=== PATIENT | female | born 1955 | race Caucasian/White ===

== ENCOUNTER → 2016-11-05 | Outpatient (CLI) | payer OTHER ==
[2016-11-05 15:59] LABS: Basophils # (A) 0.1 k/uL (0-0.2); Basophils % (A) 1 %; CH 31.5; CHCM 33.1; Eosinophils # (A) 0.3 k/uL (0-0.7); Eosinophils % (A) 4 %; HCT 38.7 % (34.0-46.0); HDW 2.33; HGB 12.7 gm/dL (11.4-16.0); Luc # (Auto) 0.25; Luc % (Auto) 4; Lymphocytes # (A) 1.4 k/uL (1.0-4.8); Lymphocytes % (A) 22 %; MCH 31.4 pg (25.0-35.0); MCHC 32.8 g/dL (31.0-37.0); MCV 95.7 fL (80.0-100.0); Mean Platelet Volume 7.6; Monocytes # (A) 0.6 k/uL (0-1.0); Monocytes % (A) 9 %; Neutrophils # (A) 3.8 k/uL (1.3-7.7); Neutrophils % (A) 60 %; RBC 4.04 m/uL (3.80-5.40); RDW 14.8 % (11.5-15.5); WBC 6.4 k/uL (3.8-10.6); WBC (Perox) 6.64
[2016-11-05 16:02] LABS: Appearance,Urine Clear (Clear); Bilirubin,Urine Negative (Negative); Glucose,Urine (UA) Negative (Negative); Ketones,Urine Negative (Negative); Leukocyte Esterase,Urine Negative (Negative); Nitrite,Urine Negative (Negative); PH, Urine 5.5 (5.0-8.0); Protein,Urine Negative (Negative); UA Billing (MACRO vs. MICRO) CHEM; Urobilinogen,Urine <2.0 mg/dL (<2.0)
[2016-11-05 16:09] LABS: INR 1.1 (<1.1); Partial Thromboplastin Time 24.5 sec (22.0-30.0); Prothrombin Time 10.9 sec (9.0-12.0)
[2016-11-05 16:21] LABS: ALT 36 U/L (9-52); AST 17 U/L (14-36); Alkaline Phosphatase 82 U/L (38-126); Anion Gap 11 mmol/L; Blood Urea Nitrogen 27 mg/dL (7-17); Calcium 9.9 mg/dL (8.4-10.2); Carbon Dioxide 24 mmol/L (22-30); Chloride 103 mmol/L (98-107); Glucose 95 mg/dL (74-99); Non-African American GFR(MDRD) 57 (>60 ml/min/1.73 sqM); Potassium 4.2 mmol/L (3.5-5.1); Sodium 138 mmol/L (137-145); Total Bilirubin 0.5 mg/dL (0.2-1.3); Total Protein 6.8 g/dL (6.3-8.2)
== END | disposition home or self-care (01) ==
LOC: LABPAT 15:20
PROVIDERS: ATTEND Orthopaedic Surgery
DX: Z01.818 Encounter for other preprocedural examination (principal)
CPT/HCPCS: 36415; 80053; 81003; 85025; 85610; 85730; 87070

== ENCOUNTER 2016-11-17 08:08 | Inpatient (IN) | payer OTHER ==
--- NOTE | 2016-11-10 09:54 | CONS ---
DATE OF CONSULTATION: Mrs. Betancourt is a 60-year-old female. She is scheduled for total right knee arthroplasty by Dr. Dayo Moses on November 17 at [facility]. Patient was seen in consultation. The patient does have history of hypertension and hyperlipidemia. There is also a history of an upper GI bleed back last April from a duodenal ulcer and history in the remote past of pseudotumor cerebri for which she had a previous lumbar peritoneal shunt placed. She does have underlying obesity. Her home medications include: 1. Hydrochlorothiazide 50 mg daily. 2. Protonix 40mg twice a day. 3. Lisinopril 5 mg daily. 4. Pravastatin 80 mg. 5. Restasis eye drops 0.05% emulsion in both eyes twice a day. ALLERGIES: No known allergies. REVIEW OF SYSTEMS: Negative for any unusual headache, visual disturbances, nausea, vomiting. No urinary or bowel symptoms. No hematochezia. No unusual leg edema. Most of her symptoms related to the pain in the right knee and difficulty walking Previous surgical history includes a hysterectomy in the past, optic nerve decompression and a lumbar peritoneal shunt for pseudotumor cerebri. Family history is positive for coronary artery disease with both parents. There is also a history of diabetes and lymphoma in the father. SOCIAL HISTORY: She is a former smoker many years ago. No history of any excessive alcohol intake. She does live locally in the area and has employment driving a van. On physical examination, she is alert and oriented, in no acute distress. Her blood pressure is 144/80. She does weigh 223 pounds with a BMI of 40.9, pulse was 80 and regular. HEENT: Unremarkable. No carotid bruits, adenopathy or thyromegaly. Lungs were clear. Heart tones are regular without murmurs or rubs. Breasts and pelvic exam deferred. ABDOMEN: Obese, but soft and nontender without organomegaly or masses. Extremities revealed some trace pedal edema and degenerative changes about the right knee. Neurologically, she is intact. Cranial nerves intact. No focal neurological weakness. The patient did have laboratory values done, which revealed a blood sugar of 95, sodium 138, potassium 4.2. Her CO2 content was 24. BUN elevated at 27 with creatinine 1.0, giving her GFR of 57. Liver function tests were unremarkable. Albumin 4.2. INR is 1.1. Her white count of 6.4, with hemoglobin 12.7 and a platelet count 249. PTT was 24.5. Urinalysis revealed negative leukocyte esterase. Nasal swab for MRSA is in progress at this dictation. Overall impression at this point: Patient was severe right knee derangement for surgery scheduled on the 17 of November. She does have a history of hypertension, underlying obesity, hyperlipidemia. Other past medical history with a previous history of a gastric ulcer last year likely NSAID induced at that time and remote history of pseudotumor cerebri for which she had a shunt placed. But at this point, cardiovascular status appears stable. I see no definite contraindication to planned surgery. She is to hold her hydrochlorothiazide the morning of surgery, although she usually takes it the night before. She can take a dose of Protonix and lisinopril with a small sip of water in the morning of surgery. Please call if any questions or concerns. ANALI
[2016-11-11 08:26] VITALS: BMI 40.6
[~2016-11-17 08:08] MED LIST: ACETAMINOPHEN TAB 500 MG TAB PO ONE; DEXAMETHASONE SOD PHOSPHATE 10 MG/ML 1 ML VIAL IV ONE; HYDROmorphone 1 MG/ML 1 ML SYRINGE IVP PRN; LIDOCAINE 1% 20 ML VIAL (10MG/ML) FOR IV START INTRADERMA PRN; MELOXICAM 7.5 MG TAB PO ONE; MIDAZOLAM 2 MG/2 ML VIAL IV PRN; ONDANSETRON 4 MG/2 ML VIAL IVP ONE; ROPIVACAINE 246.25 MG, EPINEPHrine 0.5 MG, KETOROLAC 30 MG, cloNIDine HCL/PF 80 MCG, WA... MISCELLANE ONE; SCOPOLAMINE 1.5MG/72HR PATCH TRANSDERM ONE; TRANEXAMIC ACID 1,000 MG in SODIUM CHLORIDE 0.9% 100 ML IVPB ONE; ceFAZolin 2 GM in SODIUM CHLORIDE 0.9% 100 ML IVPB ONE
[2016-11-17] MEDS ORDERED: MIDAZOLAM 2 MG/2 ML VIAL IVP ONE (12:48)
[2016-11-17] MEDS: LACTATED RINGERS 1,000 ML IV SCH ×2 (12:52→15:10)
[2016-11-17] MEDS ORDERED: ROPIVACAINE 1,100 MG, SODIUM CHLORIDE 0.9% 330 ML MISCELLANE PRN ×2 (13:11)
--- NOTE | 2016-11-17 13:13 | P.ONQ ---
Anesthesiology Proc Note - PNB - Peripheral Nerve Block Performed Adductor Canal Time Out Performed: Yes Procedure Start Time: 13:13 Procedure Stop Time: :20 Indication: Acute Post-Operative Pain, Analgesia Sedation Type: Sedate with meaningful contact maintained Preparation: Sterile Prep Position: Supine Catheter: Indwelling Needle Types: On-Q Needle Size: 100mm (4") Needle Gauge: 18 Technique: Ultrasound Injectate: 0.5% Ropivacaine (see comment for volume) Blood Aspirated: No Pain Paresthesia on Injection Noted: No Resistance on Injection: Normal Events: Uneventful and Well Tolerated
[2016-11-17] MEDS ORDERED: ceFAZolin 3,000 MG in SODIUM CHLORIDE 0.9% IRRIGATIO 3,000 ML IRRIGATION ONE (13:39)
[2016-11-17] MEDS ORDERED: fentaNYL (PF) 50 MCG/ML 2 ML AMP ONE (13:39)
[2016-11-17] MEDS ORDERED: HYDROmorphone (PF) 1 MG/ML ONE (13:39)
[2016-11-17] MEDS ORDERED: ROCURONIUM BROMIDE 10 MG/ML 10 ML VIAL IV ONE (13:39)
[2016-11-17] MEDS ORDERED: GLYCOPYRROLATE 0.2 MG/ML 2 ML VIAL ONE (13:39)
[2016-11-17] MEDS ORDERED: MIDAZOLAM 2 MG/2 ML VIAL ONE (13:39)
[2016-11-17] MEDS ORDERED: NEOSTIGMINE 1 MG/ML 10 ML VIAL ONE (13:39)
[2016-11-17] MEDS ORDERED: SUCCINYLCHOLINE CHLORIDE 100 MG/5 ML SYR IV ONE (13:39)
[2016-11-17] MEDS ORDERED: PROPOFOL 10 MG/ML 20 ML VIAL IV ONE (13:39)
[2016-11-17] MEDS ORDERED: HYDROmorphone 1 MG/ML 1 ML SYRINGE IVP PRN ×3 (15:36)
[2016-11-17] MEDS ORDERED: DIAZEPAM 5 MG TAB PO PRN ×2 (15:36)
[2016-11-17] MEDS ORDERED: MAGNESIUM HYDROXIDE 2,400 MG/10 ML CUP PO PRN (15:36)
[2016-11-17] MEDS ORDERED: ONDANSETRON 4 MG/2 ML VIAL IVP PRN (15:36)
[2016-11-17] MEDS ORDERED: NALOXONE 0.4 MG/ML 1 ML VIAL IV PRN (15:36)
[2016-11-17] MEDS ORDERED: hydrOXYzine PAMOATE 25 MG CAP PO PRN (15:36)
[2016-11-17] MEDS ORDERED: BISACODYL 10 MG SUPP RECTAL PRN (15:36)
--- NOTE | 2016-11-17 15:38 | P.OP ---
Date of Procedure: 11/17/16 Preoperative Diagnosis: Severe osteoarthritis right knee Postoperative Diagnosis: Severe osteoarthritis right knee Procedure(s) Performed: Right total knee arthroplasty Implants: Trinh and Nephew Oxinium femoral component size 4 right Trinh & Nephew Ellen II right nonporous tibial baseplate size 3 Trinh & Nephew size 11 mm Legion XLPE dished articular insert, size 3-4 Trinh [employer] Nephew Ellen II resurfacing patellar component, 29 mm All components were cemented using Daphne bone cement.. The articulation is ceramic on polyethylene. Anesthesia: spinal Surgeon: Dayo Moses Category Director #1: Amaya Granado Estimated Blood Loss (ml): 50 Pathology: other (Bone and cartilage) Condition: stable Disposition: PACU Indications for Procedure: After failure of conservative treatment we discussed the surgical and nonsurgical treatment options at length. Patient wishes to proceed with a total knee arthroplasty. Complications specific to this procedure were discussed at length, including but not limited to infection, bleeding, stiffness , and nerve injury. Patient is aware of all these complications and informed consent was obtained Operative Findings: The operative findings are consistent with severe osteoarthritis of the right knee Description of Procedure: Patient was seen in the preoperative area consent was reviewed and operative site was marked with a skin marker. An adductor canal pain catheter was placed by anesthesia in the preoperative area. Patient was then brought to the operating room and given preoperative antibiotics intravenously. A spinal anesthetic was administered by the anesthesia department. A Woodward catheter was then placed by the nursing staff. A tourniquet was placed on the upper thigh and the lower extremity was prepped and draped in usual sterile fashion. A gram of transexamic acid was given. A universal timeout was then performed which confirmed the patient's name, surgical site, ALLERGIES, and consent. The lower extremity was then exsanguinated and tourniquet was inflated to 250 mmHg. A standard and anterior midline approach to the knee was performed. The skin and subcutaneous tissue was dissected down to the patellar tendon. A medial parapatellar arthrotomy was then performed. The knee was then extended, the patellar was everted, and the knee was again flexed. Anterior horns of both menisci were excised, and a release was performed to the posterior medial aspect of the knee. On gross visual inspection, there was complete loss of articular cartilage in the medial and patellofemoral joint spaces. There was also significant cartilage damage in the lateral compartment. There were multiple periarticular osteophytes which were then removed with a Ronguer. The femoral canal was then opened with the appropriate drill, and the intramedullary femoral cutting guide was then placed and set for 4 of valgus. The distal femoral cutting block was then pinned in place, and the distal femur was then cut. The cutting block was then removed and the cut was checked for flatness. Next, the sizing guide was then placed and set for 3 external rotation based off of the epicondylar axis and Whitesides line. After the femur was sized, the appropriate 4-in-1 cutting block was then pinned in place. The anterior condyles were cut without notching. The posterior and chamfer cuts were performed while protecting the collateral ligaments. The cutting block was then removed, and the femoral canal was plugged with autologous bone. Attention was then directed to the tibia. The remaining ACL was removed with a Ronguer, and the tibia was then gently subluxed forward with a large bent knee retractor. Any remaining menisci was excised. The posterior lateral corner was cauterized in order to cauterize the lateral geniculate artery. The extra medullary tibial cutting guide was then placed, set for the appropriate rotation , slope, and depth of resection. The proximal tibia cutting guide was then pinned in place. Proximal tibia was then cut and sized. Next trials were then placed with the appropriate-sized insert. The knee was able to fully extend and flex to 130 and was stable throughout all range of motion. The knee was then extended, patella everted. Patella was then measured, and then using an osteotomy guide, the patella was cut at the appropriate level. The patella was then measured and drilled and the patella trial was then placed. The knee was then taken through range of motion with the patella trial and the patella tracked normally. The knee was then extended patella trial was then removed and the patella was everted. Knee was then flexed and lug holes were drilled through the femoral trial and the femoral trial was then removed. The tibial was then exposed, and the tibial broach guide was then pinned in place after it was set for the appropriate rotation to allow for the most coverage without overhang. The tibia was then reamed and broached. The cut surfaces of bone were then irrigated with pulsatile lavage. The posterior structures were injected with the ropivacaine solution. The knee was also irrigated with Irrisept solution. The components were then opened, the cement was mixed, and the components were then cemented in place. The cement was allowed to harden with the knee in full extension. While the cement was hardening, the remaining soft tissues were then injected with a ropivacaine solution, which consisted of 246.25 mg of ropivacaine, 0.5 mg of epinephrine, 30 mg of Toradol, 80 g of clonidine, and 48.45 mL of sterile water, for a total of 100 mL of fluid injected. After the cemented hardened. The tourniquet was released, and hemostasis was obtained. A second gram of transexamic acid was given. The knee was again irrigated. The knee was again taken through range of motion and found to be stable throughout all range of motion of 0-130 , and the patella tracked normally. The fascia was then closed with #2 strata fix suture. The subcutaneous tissue was closed with 3-0 Vicryl and 3-0 strata fix. Dermabond tape was used for the skin and placed with the knee in flexion. The patient was placed in a sterile dressing. Patient was then transferred to recovery room in stable condition. The golf player assistant EDDIE Fay was required due the complexity surgery and the need for a skilled nursing surgical services director. She assisted in positioning, draping , retraction, and closure of the wound.
--- NOTE | 2016-11-17 15:41 | XR ---
EXAMINATION TYPE: XR knee limited RT DATE OF EXAM: 11/17/2016 3:37 PM COMPARISON: NONE TECHNIQUE: 2 view submitted HISTORY: Post op FINDINGS: There is a prosthetic knee in near anatomic alignment. There is soft tissue edema and emphysema. IMPRESSION: 1. Postoperative change. Appears in near-anatomic alignment
[2016-11-17] MEDS: SODIUM CHLORIDE 0.9% 1,000 ML IV SCH (17:34)
[2016-11-17] MEDS: SENNOSIDES-DOCUSATE SODIUM 1 EACH TAB PO SCH (20:34)
[2016-11-17] MEDS: cycloSPORINE 0.05% OPHTH 0.4 ML DROPERETTE BOTH EYES SCH (20:36)
[2016-11-17] MEDS: ASPIRIN 325 MG TAB PO SCH (20:36)
[2016-11-17] MEDS: ceFAZolin 2 GM in SODIUM CHLORIDE 0.9% 100 ML IVPB SCH (23:40)
[2016-11-18] MEDS: HYDROcodone/APAP 5-325MG 1 EACH TAB PO PRN ×5 (05:28→20:46)
[2016-11-18] MEDS: SODIUM CHLORIDE 0.9% 1,000 ML IV SCH (05:36)
[2016-11-18 06:52] LABS: Basophils % (A) 0 %; CH 30.5; CHCM 32.4; Eosinophils % (A) 0 %; HDW 2.36; HGB 10.9 gm/dL (11.4-16.0); Luc # (Auto) 0.21; Luc % (Auto) 2; Lymphocytes % (A) 9 %; MCH 30.3 pg (25.0-35.0); MCHC 32.2 g/dL (31.0-37.0); MCV 94.2 fL (80.0-100.0); Mean Platelet Volume 6.8; Monocytes # (A) 0.7 k/uL (0-1.0); Monocytes % (A) 6 %; Neutrophils # (A) 10.1 k/uL (1.3-7.7); Neutrophils % (A) 84 %; RDW 13.6 % (11.5-15.5); WBC 12.1 k/uL (3.8-10.6); WBC (Perox) 13.21
[2016-11-18] MEDS: ceFAZolin 2 GM in SODIUM CHLORIDE 0.9% 100 ML IVPB SCH (07:14)
[2016-11-18] MEDS: PRAVASTATIN SODIUM 80 MG TAB PO SCH (07:14)
[2016-11-18] MEDS: PANTOPRAZOLE 40 MG TABLET PO SCH (07:14)
[2016-11-18] MEDS: cycloSPORINE 0.05% OPHTH 0.4 ML DROPERETTE BOTH EYES SCH ×2 (07:15→21:26)
--- NOTE | 2016-11-18 07:38 | P.PN ---
Progress Note - Text The patient is a 61-year-old female who underwent right total knee arthroplasty yesterday by Dr. Dayo Moses. Please refer to previous consultation. Patient does have comorbidities which consist of obesity, hypertension, hyperlipidemia. This morning though she is sitting up in bed. Alert. Denies any chest pain, shortness of breath or nausea or vomiting. She states overall her pain is controlled. Her vital signs reveal temperature of 99.4 earlier this morning her pulse 97 respirations 22. Blood pressure 107/59 and she was 99% saturated on 2 L nasal cannula. Lung and heart examination is clear and regular. Abdomen is obese but soft and nontender. Extremities reveal the presence of varicosities but no marked edema. Cranial nerves intact. She is alert. Oriented. No focal weakness noted. Laboratory: White count 12.1 with a hemoglobin 10.9 and a platelet count of 238. Impressions and plans: Patient is doing well first-day postop from the total right knee arthroplasty. Her last blood pressure was satisfactory but a little low. We will hold her lisinopril and hydrochlorothiazide. Can be advanced and progressed as per orthopedics. I will follow. Call if any questions or concerns.
--- NOTE | 2016-11-18 08:41 | P.DS ---
Providers Date of admission: 11/17/16 11:54 Expected date of discharge: 11/18/16 Attending physician: Dayo Moses Consults: 11/17/16 15:36 Consult Physician Routine Consulting Provider: Juvencio Connelly Reason/Comments: medical management Do you want consulting provider notified?: Yes Primary care physician: Juvencio Connelly - Discharge Diagnosis(es) (1) Status post total right knee replacement Current Visit: Yes Status: Acute (2) Primary osteoarthritis of right knee Current Visit: Yes Status: Acute Hospital Course: This is a pleasant 61-year-old female who was last seen in our office with complaints of right hip pain. Patient has known history of degenerative arthritis of the right hip and presented to discuss options. After discussion consideration the patient elected to proceed with a right total hip arthroplasty. Patient was seen preoperatively medically cleared for surgery by her primary care physician. Patient was admitted to [facility] and underwent right total hip arthroplasty. The procedure was performed without complications or sequelae. The patient has done well postoperatively. Pain has been are reasonably controlled. She's not yet been up with physical therapy. The patient has no new complaints today. Patient is seen and evaluated at bedside with Dr. Dayo Moses. The patient appears comfortable and in no acute distress. Dressing is clean dry and intact. Incision is fine with no erythema or active drainage. Calf is soft and nontender. The patient has good foot and ankle motion without difficulty. Lower extremities are neurovascularly intact. The patient is orthopedically stable for discharge if she does well with physical therapy today Pertinent Studies: Laboratory Tests 11/18/16 06:20 WBC 12.1 H RBC 3.60 L Hgb 10.9 L Hct 34.0 MCV 94.2 MCH 30.3 MCHC 32.2 RDW 13.6 Plt Count 238 Neutrophils % 84 Lymphocytes % 9 Monocytes % 6 Eosinophils % 0 Basophils % 0 Neutrophils # 10.1 H Lymphocytes # 1.0 Monocytes # 0.7 Eosinophils # 0.0 Basophils # 0.0 Patient Condition at Discharge: Good Plan - Discharge Summary New Discharge Prescriptions: Aspirin 325 mg PO BID #60 tab Hydrocodone/Acetaminophen [[place] 5-325] 1 - 2 each PO Q6HR PRN #90 tab PRN Reason: Pain Sennosides-Docusate Sodium [Senokot-S] 2 tab PO DAILY #60 tablet Discharge Medication List Hydrochlorothiazide [Hydrodiuril] 50 mg PO DAILY 05/18/16 [History] Lisinopril [Zestril] 5 mg PO DAILY 05/18/16 [History] Pravastatin Sodium [Pravachol] 80 mg PO DAILY 05/18/16 [History] cycloSPORINE 0.05% OPHTH SOLN [Restasis] 1 drop BOTH EYES BID 05/18/16 [History] Pantoprazole Sodium [Protonix] 40 mg PO DAILY 11/11/16 [History] Aspirin 325 mg PO BID #60 tab 11/18/16 [Rx] Hydrocodone/Acetaminophen [[place] 5-325] 1 - 2 each PO Q6HR PRN #90 tab 11/18/16 [Rx] Sennosides-Docusate Sodium [Senokot-S] 2 tab PO DAILY #60 tablet 11/18/16 [Rx] Follow up Appointment(s)/Referral(s): Dayo Moses DO [Doctor of Osteopathic Medicine] - 2 Weeks Activity/Diet/Wound Care/Special Instructions: Weightbearing as tolerated with walker Daily dressing changes Keep incision clean and dry Call [facility] with questions or concerns [phone] Discharge Disposition: HOME WITH HOME HEALTH SERVICES
[2016-11-18] MEDS: ASPIRIN 325 MG TAB PO SCH ×2 (08:56→21:26)
[2016-11-18] MEDS: MELOXICAM 7.5 MG TAB PO SCH (08:56)
[2016-11-18] MEDS ORDERED: LISINOPRIL 5 MG TAB PO SCH (09:00)
[2016-11-18] MEDS ORDERED: HYDROCHLOROTHIAZIDE 50 MG TAB PO SCH (09:00)
--- NOTE | 2016-11-18 12:25 | P.PN ---
Progress Note - Text 11/18 723am 61-year-old female status post total knee replacement by Dr. Dayo frazier. Patient seen this morning and evaluated for pain control, pain score of 2 pain on the anterior aspect of the knee,. Doing well
[2016-11-18] MEDS: SENNOSIDES-DOCUSATE SODIUM 1 EACH TAB PO SCH (21:24)
[2016-11-19] MEDS: HYDROcodone/APAP 5-325MG 1 EACH TAB PO PRN ×2 (01:39→07:00)
[2016-11-19] MEDS: LACTATED RINGERS 1,000 ML IV SCH (02:49)
[2016-11-19] MEDS: MELOXICAM 7.5 MG TAB PO SCH (07:18)
[2016-11-19] MEDS: PRAVASTATIN SODIUM 80 MG TAB PO SCH (07:18)
[2016-11-19] MEDS: ASPIRIN 325 MG TAB PO SCH (07:19)
[2016-11-19] MEDS: PANTOPRAZOLE 40 MG TABLET PO SCH (07:19)
[2016-11-19] MEDS: cycloSPORINE 0.05% OPHTH 0.4 ML DROPERETTE BOTH EYES SCH (07:19)
[2016-11-19 07:47] VITALS: BP 123/65; PULSE 87; RESP 17; TEMP 98.3
--- NOTE | 2016-11-19 08:02 | P.PN ---
Progress Note - Text The patient is a 61-year-old female underwent right total knee arthroplasty by Dr. Dayo Moses 2 days previous. Patient is sitting up in bed, alert. No chest pain or shortness of breath. No nausea or vomiting. Surgical site pain appears to be controlled. Vital signs this morning reveal temperature 98.3 with a pulse of 87 respirations 17. Blood pressure is 123/65 and she is 95% saturated on room air. Lung and heart exam was clear and regular. Abdomen is nontender. No unusual distal edema in the lower extremities or calf tenderness. She is alert and oriented. Cranial nerves intact. No focal weakness noted. Impressions and plans: This lady doing well post left knee arthroplasty. Anticipating discharge home today. Patient may resume her home medications and she also monitors her blood pressures at home. She can call office if any questions concerns or problems should arise.
--- NOTE | 2016-11-19 09:16 | P.PN ---
Progress Note - Text This is a 61-year-old female who is status post total knee arthroplasty. She is doing well from an orthopedic standpoint stay. Her discharge was held yesterday for pain management. She may be discharged to home today. Please see previous discharge summary and orders.
== END 2016-11-19 10:47 | disposition home or self-care (01) | DRG 470 ==
LOC: 2ORMAIN 11:54 → 3SUR 15:51
PROVIDERS: ADMIT Orthopaedic Surgery; ATTEND Orthopaedic Surgery
PROC: 0SRC0J9 Replacement of Right Knee Joint with Synthetic Substitute, Cemented, Open Approach (ICD-10-PCS; principal; 2016-11-17 14:10)
DX: M17.11 Unilateral primary osteoarthritis, right knee (principal); Z68.41 Body mass index [BMI] 40.0-44.9, adult; I10 Essential (primary) hypertension; E78.5 Hyperlipidemia, unspecified; E66.9 Obesity, unspecified; Z79.899 Other long term (current) drug therapy; Z87.11 Personal history of peptic ulcer disease; Z87.891 Personal history of nicotine dependence
CPT/HCPCS: 85025; 88300

== ENCOUNTER → 2017-06-15 | Outpatient (CLI) | payer OTHER ==
[2017-06-15 15:16] LABS: EKG EKG PERFORMED
[2017-06-15 15:44] LABS: CH 31.8; HCT 36.5 % (34.0-46.0); HDW 2.31; HGB 11.8 gm/dL (11.4-16.0); MCH 31.2 pg (25.0-35.0); MCHC 32.2 g/dL (31.0-37.0); MCV 96.9 fL (80.0-100.0); Mean Platelet Volume 7.7; RBC 3.77 m/uL (3.80-5.40); RDW 13.6 % (11.5-15.5); WBC 7.5 k/uL (3.8-10.6)
[2017-06-15 15:49] LABS: Appearance,Urine Clear (Clear); Bilirubin,Urine Negative (Negative); Glucose,Urine (UA) Negative (Negative); INR 1.1 (<1.2); Ketones,Urine Negative (Negative); Leukocyte Esterase,Urine Small (Negative); Mucus,Urine Rare /hpf; Nitrite,Urine Negative (Negative); PH, Urine 5.5 (5.0-8.0); Partial Thromboplastin Time 24.7 sec (22.0-30.0); Particle Count 757; Protein,Urine Negative (Negative); RBC,Urine 1 /hpf (0-5); Specific Gravity,Urine 1.013 (1.001-1.035); Squamous Epithelial Cell,Urine 1 /hpf (0-4); UA Billing (MACRO vs. MICRO) MICRO; Urobilinogen,Urine <2.0 mg/dL (<2.0); WBC,Urine 1 /hpf (0-5)
[2017-06-15 15:58] LABS: ALT 32 U/L (9-52); AST 16 U/L (14-36); Alkaline Phosphatase 87 U/L (38-126); Anion Gap 12 mmol/L; Blood Urea Nitrogen 28 mg/dL (7-17); Calcium 9.5 mg/dL (8.4-10.2); Carbon Dioxide 24 mmol/L (22-30); Chloride 102 mmol/L (98-107); Glucose 113 mg/dL (74-99); Non-African American GFR(MDRD) 41 (>60 ml/min/1.73 sqM); Potassium 4.1 mmol/L (3.5-5.1); Sodium 138 mmol/L (137-145); Total Bilirubin 0.2 mg/dL (0.2-1.3); Total Protein 6.5 g/dL (6.3-8.2)
== END | disposition home or self-care (01) ==
LOC: LABPAT 15:02
PROVIDERS: ATTEND Orthopaedic Surgery
DX: Z01.810 Encounter for preprocedural cardiovascular examination (principal); Z01.812 Encounter for preprocedural laboratory examination
CPT/HCPCS: 36415; 80053; 81001; 85027; 85610; 85730; 87070; 93005

== ENCOUNTER 2017-07-06 09:50 | Inpatient (IN) | payer OTHER ==
--- NOTE | 2017-06-27 20:33 | CONS ---
CONSULTATION REASON FOR CONSULTATION: Preop consultation. Mrs. Betancourt is scheduled for a left knee arthroplasty by Dr. Dayo Banuelosoff July 06 at [facility]. We were asked to see you for preop consultation. The patient has had problems with the chronic left knee pain that has been worsening. OTHER PAST MEDICAL HISTORY: Is positive for hypertension, hyperlipidemia, gastroesophageal reflux, there is a previous history of benign intracranial hypertension and she also has underlying obesity. REVIEW OF SYSTEMS: Was negative for any unusual headaches, nausea, vomiting. No urinary or bowel symptoms. No hematemesis or hematochezia. No unusual edema. FAMILY HISTORY: Positive for heart disease. There is a history of diabetes in her mother and father has a history of non-Hodgkin's lymphoma. SOCIAL HISTORY: Negative for smoking or any excessive alcohol intake. She does work in the transportation specter with driving a van. PHYSICAL EXAMINATION: She is alert and oriented and pleasant in no acute distress. Vital signs revealed blood pressure 138/80, pulse of 76 and regular. HEENT: Unremarkable. NECK: Supple. Lungs were clear to auscultation and percussion. Heart tones were regular. ABDOMEN: Obese, but nontender. Extremities revealed no unusual edema. No focal neurological deficits noted. The patient did have laboratory evaluation which revealed a blood sugar of 113, potassium 4.1, BUN of 28 with creatinine 1.23 cm, GFR 41. Other liver function tests were unremarkable. Her INR is 1.1. White count is 7.5, the hemoglobin 11.8, and platelet count of 268. Urinalysis only revealed 1 white cell, and 1 red cell. Overall this 61-year-old female does have underlying history of hypertension, hyperlipidemia, gastroesophageal reflux disease. There is a remote history of benign intracranial hypertension and also history of blood clots more than 30 years ago without evidence of any recurrence. Basically, her cardiovascular system is stable. She is on medications including Protonix, hydrochlorothiazide, lisinopril for blood pressure. Pravastatin for her cholesterol and Restasis for her dry eyes. At this point, I see no definite contraindication to the planned surgical intervention. I did recommend that the patient not take her diuretic the morning of her surgery, can take her lisinopril with a small sip of water. Once again at this time the patient is cleared for the left knee surgery. Please call if any questions concerns or problems. MMODL / IJN: [id number] /
[2017-06-29 15:49] VITALS: BMI 41.5
[~2017-07-06 09:50] MED LIST changes: -DEXAMETHASONE SOD PHOSPHATE 10 MG/ML 1 ML VIAL IV ONE; +HYDROmorphone 0.5 MG/0.5 ML SYRINGE IVP PRN; -HYDROmorphone 1 MG/ML 1 ML SYRINGE IVP PRN; -SCOPOLAMINE 1.5MG/72HR PATCH TRANSDERM ONE; -ceFAZolin 2 GM in SODIUM CHLORIDE 0.9% 100 ML IVPB ONE; +ceFAZolin IN SWFI 2 GM/20 ML SYRINGE IVP ONE; +fentaNYL (PF) 50 MCG/ML 20 ML VIAL IVP PRN
[2017-07-06] MEDS: LACTATED RINGERS 1,000 ML IV SCH (12:03)
[2017-07-06] MEDS ORDERED: DEXAMETHASONE SOD PHOSPHATE 10 MG/ML 1 ML VIAL IV ONE (12:15)
[2017-07-06] MEDS ORDERED: ROPIVACAINE 1,100 MG, SODIUM CHLORIDE 0.9% 330 ML MISCELLANE PRN ×2 (12:37)
--- NOTE | 2017-07-06 12:38 | P.ONQ ---
Anesthesiology Proc Note - PNB - Peripheral Nerve Block Performed Left Adductor Canal Indication: Acute Post-Operative Pain, Requested by physician (Dr Dayo Moses ) Sedation Type: Sedate with meaningful contact maintained Preparation: Sterile Dressing Position: Supine Catheter: Indwelling Needle Types: Other (see comment) (Aj) Needle Size: 100mm (4") Needle Gauge: 20 Technique: Ultrasound Injectate: 0.5% Ropivacaine (see comment for volume) (20cc) Blood Aspirated: No Pain Paresthesia on Injection Noted: No Resistance on Injection: Normal Events: Uneventful and Well Tolerated
[2017-07-06] MEDS ORDERED: MIDAZOLAM 2 MG/2 ML VIAL ONE (13:37)
[2017-07-06] MEDS ORDERED: HYDROmorphone (PF) 1 MG/ML ONE (13:37)
[2017-07-06] MEDS ORDERED: LIDOCAINE 1% INJ 10MG/ML (20 ML MDV) ONE (13:37)
[2017-07-06] MEDS ORDERED: PROPOFOL 10 MG/ML 20 ML VIAL IV ONE (13:37)
[2017-07-06] MEDS ORDERED: SUCCINYLCHOLINE CHLORIDE 100 MG/5 ML SYR IV ONE (13:37)
[2017-07-06] MEDS ORDERED: SODIUM CHLORIDE 0.9% 100 ML BAG ONE (13:37)
[2017-07-06] MEDS ORDERED: fentaNYL (PF) 50 MCG/ML 2 ML AMP ONE (13:37)
[2017-07-06] MEDS ORDERED: ROCURONIUM BROMIDE 10 MG/ML 10 ML VIAL IV ONE (13:37)
[2017-07-06] MEDS ORDERED: KETOROLAC 30 MG/ML 1 ML VIAL ONE (13:37)
[2017-07-06] MEDS ORDERED: TRANEXAMIC ACID 1,000 MG/10 ML VIAL ONE (13:37)
[2017-07-06] MEDS ORDERED: BISACODYL 10 MG SUPP RECTAL PRN (13:54)
[2017-07-06] MEDS ORDERED: NA PHOS,M-B/NA PHOS,DI-BA 133 ML ENEMA RECTAL PRN (13:54)
[2017-07-06] MEDS ORDERED: ONDANSETRON 4 MG/2 ML VIAL IVP PRN (13:54)
[2017-07-06] MEDS ORDERED: hydrOXYzine PAMOATE 25 MG CAP PO PRN (13:54)
[2017-07-06] MEDS ORDERED: HYDROcodone/APAP 5-325MG 1 EACH TAB PO PRN (13:54)
[2017-07-06] MEDS ORDERED: DIAZEPAM 5 MG TAB PO PRN ×2 (13:54)
[2017-07-06] MEDS ORDERED: HYDROmorphone 1 MG/ML 1 ML SYRINGE IVP PRN ×2 (13:54)
[2017-07-06] MEDS ORDERED: NALOXONE 0.4 MG/ML 1 ML VIAL IV PRN (13:54)
[2017-07-06] MEDS ORDERED: ceFAZolin 3,000 MG in SODIUM CHLORIDE 0.9% IRRIGATIO 3,000 ML IRRIGATION ONE (14:10)
[2017-07-06] MEDS ORDERED: LACTATED RINGERS 1,000 ML IV ONE (14:39)
--- NOTE | 2017-07-06 14:59 | P.OP ---
Date of Procedure: 07/06/17 Preoperative Diagnosis: Severe osteoarthritis left knee Postoperative Diagnosis: Severe osteoarthritis left knee Procedure(s) Performed: Left total knee arthroplasty Implants: Trinh and Nephew Oxinium femoral component size 4, left Trinh & Nephew Ellen II left nonporous tibial baseplate size 3 Trinh & Nephew size 15 mm Legion XLPE dished articular insert, size 3-4 Trinh & Nephew Ellen II resurfacing patellar component, 29 mm All components were cemented using Daphne bone cement.. The articulation is Oxinium on polyethylene. Anesthesia: spinal Surgeon: Dayo Moses [employer] Service Merchandiser #1: Estella Sharp Estimated Blood Loss (ml): 50 Pathology: other (Bone and cartilage) Condition: stable Disposition: PACU Indications for Procedure: After failure of conservative treatment we discussed the surgical and nonsurgical treatment options at length. Patient wishes to proceed with a total knee arthroplasty. Complications specific to this procedure were discussed at length, including but not limited to infection, bleeding, stiffness , and nerve injury. Patient is aware of all these complications and informed consent was obtained Operative Findings: The operative findings are consistent with severe osteoarthritis of the left knee Description of Procedure: Patient was seen in the preoperative area consent was reviewed and operative site was marked with a skin marker. An adductor canal pain catheter was placed by anesthesia in the preoperative area. Patient was then brought to the operating room and given preoperative antibiotics intravenously. A spinal anesthetic was administered by the anesthesia department. A tourniquet was placed on the upper thigh and the lower extremity was prepped and draped in usual sterile fashion. A gram of transexamic acid was given. A universal timeout was then performed which confirmed the patient's name, surgical site, ALLERGIES, and consent. The lower extremity was then exsanguinated and tourniquet was inflated to 250 mmHg. A standard and anterior midline approach to the knee was performed. The skin and subcutaneous tissue was dissected down to the patellar tendon. A medial parapatellar arthrotomy was then performed. The knee was then extended, the patellar was everted, and the knee was again flexed. Anterior horns of both menisci were excised, and a release was performed to the posterior medial aspect of the knee. On gross visual inspection, there was complete loss of articular cartilage in the medial and patellofemoral joint spaces. There was also significant cartilage damage in the lateral compartment. There were multiple periarticular osteophytes which were then removed with a Ronguer. The femoral canal was then opened with the appropriate drill, and the intramedullary femoral cutting guide was then placed and set for 4 of valgus. The distal femoral cutting block was then pinned in place, and the distal femur was then cut. The cutting block was then removed and the cut was checked for flatness. Next, the sizing guide was then placed and set for 3 external rotation based off of the epicondylar axis and Whitesides line. After the femur was sized, the appropriate 4-in-1 cutting block was then pinned in place. The anterior condyles were cut without notching. The posterior and chamfer cuts were performed while protecting the collateral ligaments. The cutting block was then removed, and the femoral canal was plugged with autologous bone. Attention was then directed to the tibia. The remaining ACL was removed with a Ronguer, and the tibia was then gently subluxed forward with a large bent knee retractor. Any remaining menisci was excised. The posterior lateral corner was cauterized in order to cauterize the lateral geniculate artery. The extra medullary tibial cutting guide was then placed, set for the appropriate rotation , slope, and depth of resection. The proximal tibia cutting guide was then pinned in place. Proximal tibia was then cut and sized. Next trials were then placed with the appropriate-sized insert. The knee was able to fully extend and flex to 130 and was stable throughout all range of motion. The knee was then extended, patella everted. Patella was then measured, and then using an osteotomy guide, the patella was cut at the appropriate level. The patella was then measured and drilled and the patella trial was then placed. The knee was then taken through range of motion with the patella trial and the patella tracked normally. The knee was then extended patella trial was then removed and the patella was everted. Knee was then flexed and lug holes were drilled through the femoral trial and the femoral trial was then removed. The tibial was then exposed, and the tibial broach guide was then pinned in place after it was set for the appropriate rotation to allow for the most coverage without overhang. The tibia was then reamed and broached. The cut surfaces of bone were then irrigated with pulsatile lavage. The posterior structures were injected with the ropivacaine solution. The knee was also irrigated with Irrisept solution. The components were then opened, the cement was mixed, and the components were then cemented in place. The cement was allowed to harden with the knee in full extension. While the cement was hardening, the remaining soft tissues were then injected with a ropivacaine solution, which consisted of 246.25 mg of ropivacaine, 0.5 mg of epinephrine, 30 mg of Toradol, 80 g of clonidine, and 48.45 mL of sterile water, for a total of 100 mL of fluid injected. After the cemented hardened. The tourniquet was released, and hemostasis was obtained. A second gram of transexamic acid was given. The knee was again irrigated. The knee was again taken through range of motion and found to be stable throughout all range of motion of 0-130 , and the patella tracked normally. The fascia was then closed with #2 strata fix suture. The subcutaneous tissue was closed with 3-0 Vicryl and 3-0 strata fix. Dermabond glue was used for the skin and placed with the knee in flexion. The patient was placed in a sterile silver dressing. Patient was then transferred to recovery room in stable condition. The food service assistant EDDIE Meyer was required due the complexity surgery and the need for a skilled surgical rn. She assisted in positioning, draping, retraction, and closure of the wound.
[2017-07-06] MEDS ORDERED: ONDANSETRON 4 MG/2 ML VIAL IVP ONE (16:08)
--- NOTE | 2017-07-06 16:27 | XR ---
EXAMINATION TYPE: XR knee limited LT DATE OF EXAM: 07/06/2017 COMPARISON: NONE HISTORY: Postop left knee replacement TECHNIQUE: 2 views left knee FINDINGS: No acute fractures are evident. Femoral and tibial components of in place. No acute fractur es are evident. Postsurgical changes are within soft tissues. IMPRESSION: 1. No acute fracture post left knee replacement
[2017-07-06] MEDS: PANTOPRAZOLE 40 MG TABLET PO SCH (18:54)
[2017-07-06] MEDS: cycloSPORINE 0.05% OPHTH 0.4 ML DROPERETTE BOTH EYES SCH (22:11)
[2017-07-06] MEDS: SENNOSIDES-DOCUSATE SODIUM 1 EACH TAB PO SCH (22:12)
[2017-07-06] MEDS: SODIUM CHLORIDE 0.9% 1,000 ML IV SCH (22:12)
[2017-07-06] MEDS: ASPIRIN 325 MG TAB PO SCH (22:12)
[2017-07-07] MEDS: ceFAZolin IN SWFI 2 GM/20 ML SYRINGE IVP SCH ×2 (00:10→09:16)
[2017-07-07] MEDS: HYDROcodone/APAP 5-325MG 1 EACH TAB PO PRN ×4 (04:27→21:15)
[2017-07-07] MEDS: SODIUM CHLORIDE 0.9% 1,000 ML IV SCH ×2 (05:56→14:23)
[2017-07-07] MEDS: LACTATED RINGERS 1,000 ML IV SCH (05:56)
[2017-07-07 07:35] LABS: Basophils % (A) 0 %; CH 30.9; CHCM 32.1; Eosinophils # (A) 0.1 k/uL (0-0.7); Eosinophils % (A) 0 %; HCT 37.2 % (34.0-46.0); HDW 2.29; HGB 11.5 gm/dL (11.4-16.0); Luc # (Auto) 0.13; Luc % (Auto) 1; Lymphocytes # (A) 1.1 k/uL (1.0-4.8); Lymphocytes % (A) 8 %; MCV 96.7 fL (80.0-100.0); Mean Platelet Volume 6.9; Monocytes # (A) 0.8 k/uL (0-1.0); Monocytes % (A) 6 %; Neutrophils # (A) 11.7 k/uL (1.3-7.7); Neutrophils % (A) 85 %; RBC 3.85 m/uL (3.80-5.40); RDW 12.4 % (11.5-15.5); WBC 13.7 k/uL (3.8-10.6); WBC (Perox) 13.85
--- NOTE | 2017-07-07 07:48 | P.PN ---
Progress Note - Text The patient is status post left adductor canal catheter placement. The catheter was placed for postoperative pain control, status post total left arthroplasty. Ropivacaine 0.2% is infusing at 8 mLs per hour. The patient has no complaints of left lower extremity numbness or weakness. Patient's VAS score is 0-10. Assessment: Patient's adductor canal catheter is in place and working appropriately. Plan: continue infusion and adjust it as needed.
[2017-07-07 07:55] LABS: Anion Gap 8 mmol/L; Blood Urea Nitrogen 17 mg/dL (7-17); Calcium 9.5 mg/dL (8.4-10.2); Carbon Dioxide 26 mmol/L (22-30); Chloride 102 mmol/L (98-107); Glucose 136 mg/dL (74-99); Non-African American GFR(MDRD) >60 (>60 ml/min/1.73 sqM); Potassium 4.1 mmol/L (3.5-5.1); Sodium 136 mmol/L (137-145)
--- NOTE | 2017-07-07 08:29 | P.PN ---
Progress Note - Text The patient is a 61-year-old female who yesterday underwent a left total knee arthroplasty. Patient has underlying history of obesity, hypertension, hyperlipidemia, gastroesophageal reflux. There is also a remote history of benign intracranial hypertension. This morning though she is sitting up in bed. Alert. Denies any chest pain or shortness of breath. No nausea or vomiting. She states she's been able to get up on the left knee. Vital signs reveal temperature 98.2 with a pulse of 88 respirations 18. Blood pressure 131/82 and she is 96% saturated. Lung and heart examination is clear and regular. Abdomen nontender. The left knee wound looks clean. No focal neurological deficits. Laboratory White count is 13.7 with a hemoglobin 11.5 and a platelet count of 278. Sodium was 136 with potassium 4.1. Her GFR is greater than 60. Blood sugar this morning slightly high at 136. Impressions and plans: This is a 61-year-old female status post left knee surgery yesterday and comorbidities, medical concerns as listed above appears overall to be doing well and can be progressed as per orthopedics. Medications have been continued for control of her underlying medical concerns that I list. Please call if any questions or concerns.
[2017-07-07] MEDS: cycloSPORINE 0.05% OPHTH 0.4 ML DROPERETTE BOTH EYES SCH ×2 (09:16→21:36)
[2017-07-07] MEDS: PRAVASTATIN SODIUM 80 MG TAB PO SCH (09:16)
[2017-07-07] MEDS: ASPIRIN 325 MG TAB PO SCH ×2 (09:16→21:36)
[2017-07-07] MEDS: PANTOPRAZOLE 40 MG TABLET PO SCH ×2 (09:16→21:36)
[2017-07-07] MEDS: LISINOPRIL 5 MG TAB PO SCH (09:16)
[2017-07-07] MEDS: MELOXICAM 7.5 MG TAB PO SCH (09:17)
[2017-07-07] MEDS: HYDROCHLOROTHIAZIDE 50 MG TAB PO SCH (09:17)
--- NOTE | 2017-07-07 09:41 | P.PN ---
Subjective Progress Note Date: 07/07/17 This is a 61-year-old female who is status post left total knee arthroplasty. This is postoperative day #1. Patient is seen and evaluated at bedside with Dr. Dayo Moses. Patient states her pain is well controlled and she is doing well with physical therapy. Patient has no new complaints today. Objective - Vital Signs Vital signs: Vital Signs Temp 98.2 F 07/07/17 08:15 Pulse 88 07/07/17 08:15 Resp 18 07/07/17 08:15 BP 131/82 07/07/17 08:15 Pulse Ox 96 07/07/17 08:15 Intake & Output 07/06/17 07/07/17 07/07/17 18:59 06:59 18:59 Intake Total 1601 715 180 Output Total 50 Balance 1551 715 180 Weight 99.79 kg Intake: IV 1601 Intake, IV Titration 715 Amount Sodium Chloride 0.9% 1, 715 000 ml @ 65 mls/hr IV . [id number] LA Rx#:[id number] Oral 180 Output: Estimated Blood Loss 50 Other: Voiding Method Toilet # Voids 1 - Exam Vital signs are stable. Patient is in no acute distress and is alert and oriented 3. Calf is soft and nontender. Dressing is clean, dry, and intact. Neurovascular status intact. Patient has full foot and ankle motion. - Labs CBC & Chem 7: 07/07/17 07:18 07/07/17 07:18 Labs: Abnormal Lab Results - Last 24 Hours (Table) 07/07/17 07/07/17 Range/Units 07:18 07:18 WBC 13.7 H (3.8-10.6) k/uL Neutrophils # 11.7 H (1.3-7.7) k/uL Sodium 136 L (137-145) mmol/L Glucose 136 H (74-99) mg/dL Assessment and Plan (1) Primary osteoarthritis of left knee Current Visit: Yes Status: Acute Code(s): M17.12 - UNILATERAL PRIMARY OSTEOARTHRITIS, LEFT KNEE SNOMED Code(s): 099925578 (2) S/P total knee arthroplasty Current Visit: Yes Status: Acute Code(s): Z96.659 - PRESENCE OF UNSPECIFIED ARTIFICIAL KNEE JOINT SNOMED Code(s): 4187583047246 Plan: #1 Continue with routine postoperative care. #2 Anticoagulation with aspirin. #3 Physical therapy and CPM today. #4 Appreciate input from medicine. #5 Anticipate discharge home with home care likely tomorrow.
[2017-07-07 14:36] VITALS: RESP 16
[2017-07-07] MEDS: SENNOSIDES-DOCUSATE SODIUM 1 EACH TAB PO SCH (21:38)
[2017-07-08] MEDS: HYDROcodone/APAP 5-325MG 1 EACH TAB PO PRN ×3 (03:14→13:34)
[2017-07-08] MEDS: MELOXICAM 7.5 MG TAB PO SCH (08:11)
[2017-07-08] MEDS: PANTOPRAZOLE 40 MG TABLET PO SCH (08:11)
[2017-07-08] MEDS: HYDROCHLOROTHIAZIDE 50 MG TAB PO SCH (08:11)
[2017-07-08] MEDS: ASPIRIN 325 MG TAB PO SCH (08:12)
[2017-07-08] MEDS: LISINOPRIL 5 MG TAB PO SCH (08:12)
[2017-07-08] MEDS: cycloSPORINE 0.05% OPHTH 0.4 ML DROPERETTE BOTH EYES SCH (08:12)
[2017-07-08] MEDS: PRAVASTATIN SODIUM 80 MG TAB PO SCH (08:13)
--- NOTE | 2017-07-08 08:20 | P.PN ---
Progress Note - Text The patient is a 61-year-old female who underwent left total knee arthroplasty 2 days previous. Patient does have underlying comorbidities which include obesity, hypertension, hyperlipidemia and gastroesophageal reflux. The patient is sitting up in bed. No complaints of chest pain or shortness of breath. No nausea or vomiting. Vital signs reveal temperature 98.4 with a pulse of 79 and respirations 16. Blood pressure is 131/61 and she is 99% saturated on room air. Clinical examination unchanged. No new lab testing and noted. Patient has been up with physical therapy and ambulating in the hallways. Impressions and plan: Discussed with patient at bedside along with nursing staff. Possible discharge today if okay with orthopedics. The patient will continue her previous home medications as outlined in her medical consultation. Office follow-up as deemed necessary. Patient will call if any questions, concerns or problems develop. Also follow-up as needed with orthopedics.
--- NOTE | 2017-07-08 08:43 | P.DS ---
Providers Date of admission: 07/06/17 11:33 Expected date of discharge: 07/08/17 Attending physician: Dayo Moses Consults: 07/06/17 13:54 Consult Physician Routine Consulting Provider: Juvencio Connelly Reason/Comments: medical management Do you want consulting provider notified?: Yes Primary care physician: Juvencio Connelly - Discharge Diagnosis(es) (1) Primary osteoarthritis of left knee Current Visit: Yes Status: Acute (2) S/P total knee arthroplasty Current Visit: Yes Status: Acute Hospital Course: This is a 61-year-old female with known history of degenerative arthritis of the left knee. The patient presents for evaluation. After discussion and consideration patient elects to proceed with total knee arthroplasty. The patient is seen preoperatively by Dr. Moses and cleared for surgery. Patient is admitted to [facility] on 07/06/2017 for total knee arthroplasty. The procedures performed without complication or sequelae. The patient is doing well postoperatively. Labs and vital signs are stable on day of discharge. On day of discharge patient's knee incision is healing well. There is minimal erythema. There is no drainage noted at this time. There is minimal soft tissue swelling to the knee. Patient has full foot and ankle motion without difficulty or pain. Neurovascular status to the left lower extremity is intact. Patient is discharged home in good condition. Please see med rec for accurate list of home medications. Plan - Discharge Summary Discharge Rx Participant: Yes New Discharge Prescriptions: New Aspirin 325 mg PO BID #60 tab HYDROcodone/APAP 5-325MG [Clifton 5-325] 1 - 2 tab PO Q4-6H PRN #90 tab PRN Reason: Pain Sennosides-Docusate Sodium [Senokot-S] 1 tab PO BID #60 tablet No Action cycloSPORINE 0.05% OPHTH SOLN [Restasis] 1 drop BOTH EYES BID Pravastatin Sodium [Pravachol] 80 mg PO DAILY Lisinopril [Zestril] 5 mg PO DAILY Hydrochlorothiazide [Hydrodiuril] 50 mg PO DAILY Pantoprazole Sodium [Protonix] 40 mg PO BID Ibuprofen [Motrin] 200 - 400 mg PO Q6HR PRN PRN Reason: Pain Acetaminophen [Tylenol Arthritis] 650 mg PO Q12H PRN PRN Reason: Pain Discharge Medication List Hydrochlorothiazide [Hydrodiuril] 50 mg PO DAILY 05/18/16 [History] Lisinopril [Zestril] 5 mg PO DAILY 05/18/16 [History] Pravastatin Sodium [Pravachol] 80 mg PO DAILY 05/18/16 [History] cycloSPORINE 0.05% OPHTH SOLN [Restasis] 1 drop BOTH EYES BID 05/18/16 [History] Pantoprazole Sodium [Protonix] 40 mg PO BID 11/11/16 [History] Acetaminophen [Tylenol Arthritis] 650 mg PO Q12H PRN 06/29/17 [History] Ibuprofen [Motrin] 200 - 400 mg PO Q6HR PRN 06/29/17 [History] Aspirin 325 mg PO BID #60 tab 07/08/17 [Rx] HYDROcodone/APAP 5-325MG [Clifton 5-325] 1 - 2 tab PO Q4-6H PRN #90 tab 07/08/17 [ Rx] Sennosides-Docusate Sodium [Senokot-S] 1 tab PO BID #60 tablet 07/08/17 [Rx] Ambulatory/Diagnostic Orders: Continuous Passive Motion (CPM) Machine [DME.AMB1] Time Frame: 3 Weeks, Location : Determined By Patient Ambulatory Physical Therapy Order [THER.AMB] Location: Determined By Patient
--- NOTE | 2017-07-08 13:18 | P.PN ---
Progress Note - Text 0632 Anesthesia POD 2. Patient is status post left TKR under spinal anesthesia with a left adductor canal catheter placed for postoperative pain relief. With ropivacaine 0.2% running at 12 cc's per hour, the patient's VAS is (0, 3). Catheter site is clean dry and intact.
[2017-07-08 15:23] VITALS: BP 128/79; PULSE 82; TEMP 98.3
== END 2017-07-08 16:45 | disposition home or self-care (01) | DRG 470 ==
LOC: 2ORMAIN 11:33 → 3SUR 15:29
PROVIDERS: ADMIT Orthopaedic Surgery; ATTEND Orthopaedic Surgery
PROC: 0SRD069 Replacement of Left Knee Joint with Oxidized Zirconium on Polyethylene Synthetic Substitute, Cemented, Open Approach (ICD-10-PCS; principal; 2017-07-06 13:15)
DX: M17.12 Unilateral primary osteoarthritis, left knee (principal); K25.9 Gastric ulcer, unspecified as acute or chronic, without hemorrhage or perforation; I10 Essential (primary) hypertension; Z79.899 Other long term (current) drug therapy; E78.5 Hyperlipidemia, unspecified; Z96.651 Presence of right artificial knee joint; Z82.49 Family history of ischemic heart disease and other diseases of the circulatory system; Z87.891 Personal history of nicotine dependence; E66.9 Obesity, unspecified; K21.9 Gastro-esophageal reflux disease without esophagitis; Z83.3 Family history of diabetes mellitus
CPT/HCPCS: 80048; 85025; 88300

== ENCOUNTER → 2022-12-28 | Outpatient (CLI) | payer OTHER ==
--- NOTE | 2022-12-28 16:00 | BD ---
EXAMINATION TYPE: Axial Bone Density DATE OF EXAM: 12/28/2022 CLINICAL HISTORY: 67 years old Female. ICD-10 CODE: Z13.820 SCREENING FOR OSTEOPOROSIS Height: 61 Weight: 228.9 FRAX RISK QUESTIONS: Alcohol (3 or more units per day): no Family History (Parent hip fracture): no Glucocorticoids (More than 3mos): no History of Fracture in Adulthood: no Secondary Osteoporosis: 1. Type 1 Diabetes: no 2. Hyperthyroidism: no 3. Menopause before 45: no 4. Malnutrition: no 5. Chronic liver disease: no Rheumatoid Arthritis: no Current Tobacco Use: no RISK FACTORS HISTORY OF: Hip Fracture (Right/Left): no Spine Fracture: no History of Wrist Fracture: no Surgery to Spine/Hip(right/left)/Wrist (right/left): shunt in lumbar spine since 1990 Family History of Osteoporosis: sister x2 Active: somewhat Diet low in dairy products/other sources of calcium: yes Postmenopausal woman: yes Take estrogen and/or progesterone medications: no Lost more than 2 inches in height since high school: no Frequent falls: no Poor Health: no Hyperparathyroidism: no Adrenal Insufficiency: no MEDICATIONS: Prednisone or other steroids: no: Thyroid Medications: no Osteoporosis Medications: no Additional Medications: BP Meds, Cholesterol Meds, Additional History: EXAM MEASUREMENTS: Bone mineral densitometry was performed using the SunnyBump System. Bone mineral density as measured about the Lumbar spine is: ----- L1-L4(G/cm2): 1.219 T Score Values are as follows: ----- L1: 0.8 ----- L2: 1.1 ----- L3: 0.1 ----- L4: -0.8 ----- L1-L4: 0.3 Z Score Values are as follows: ----- L1: 1.2 ----- L2: 1.5 ----- L3: 0.5 ----- L4: -0.3 ----- L1-L4: 0.8 Baseline study Bone mineral density about the R hip (g/cm2): 1.012 Bone mineral density about the L hip (g/cm2): 1.055 T Score values are as follows: -----R Neck: -1.4 -----L Neck: -1.1 -----R Total: 0.0 -----L Total: 0.4 Z Score values are as follows: -----R Neck: -0.7 -----L Neck: -0.3 -----R Total: 0.4 -----L Total: 0.8 Baseline study FRAX%s: The graph provided illustrates a 7.7% chance for a major osteoporotic fx and a 0.8% chance fo r the hips probability for fx in 10 years time. IMPRESSION: Osteopenia (T Score between -2.5 and -1) femoral neck level in both hips. There is slightly increased risk of fracture and the patient may be considered for treatment. Re-Screen 2-5 years. NOTE: T-SCORE=SD OF THE YOUNG ADULT MEAN.
--- NOTE | 2022-12-29 08:16 | US ---
EXAMINATION TYPE: US kidneys/renal and bladder DATE OF EXAM: 12/28/2022 COMPARISON: KUB 2016 CLINICAL INDICATION: Female, 67 years old with history of N28.9 RENAL INSUFFICIENCY; Renal insufficie ncy EXAM MEASUREMENTS: Right Kidney: 12.6 x 6.6 x 6.1 cm Left Kidney: Not visualized. Right Kidney: Appears slightly enlarged. No hydronephrosis or masses seen Left Kidney: Unable to visualize, LLQ was scanned as well, unable to visualize. Bladder: Appears anechoic. Bilateral Jets seen: No IMPRESSION: 1. No evidence for acute process. 2. Nonvisualization of the left kidney.
--- NOTE | 2022-12-29 08:30 | XR ---
EXAMINATION TYPE: XR chest 2V DATE OF EXAM: 12/28/2022 COMPARISON: NONE TECHNIQUE: PA and lateral views submitted. HISTORY: Hypercalcemia FINDINGS: The lungs are clear and there is no pneumothorax, pleural effusion, or focal pneumonia. Heart size normal and no overt failure. Osseous structures demonstrate hypertrophic and degenerative changes of the spine. Atherosclerotic change aorta. Hyperinflation suggests COPD. IMPRESSION: 1. No acute process.
--- NOTE | 2022-12-29 19:28 | MM ---
Reason for Exam: Screening (asymptomatic). Baseline mammogram. Patient History: Menarche at age 13. First Full-Term at age 19. Hysterectomy at age 44. Postmenopausal. Risk Values: Maureen 5 year model risk: 1.2%. NCI Lifetime model risk: 4.4%. Prior Study Comparison: Patient's first Mammogram. No prior studies available for comparison. Tissue Density: There are scattered fibroglandular densities. Findings: Analyzed By CAD. Bilateral secretory and vascular calcifications are demonstrated. There is 6 mm circumscribed nodularity anterior upper outer periareolar left breast for which further evaluation is recommended. Otherwise, no significant mass or other discrete abnormality is seen. Overall Assessment: Incomplete: need additional imaging evaluation, BI-RAD 0 Management: Special View Mammogram of the left breast. Diagnostic Breast Ultrasound of the left breast. Additional views to include 3-D ML. Based on localization on the true lateral view, targeted left breast ultrasound. [facility] will attempt to contact patient to return for supplemental views and ultrasound if indicated. Electronically signed and approved by: Antoni Blum M.D. Radiologist
== END ==
LOC: RADMAMWWP 15:02
PROVIDERS: ATTEND Internal Medicine
DX: Z12.31 Encounter for screening mammogram for malignant neoplasm of breast (principal); Z13.820 Encounter for screening for osteoporosis; M85.89 Other specified disorders of bone density and structure, multiple sites; N28.9 Disorder of kidney and ureter, unspecified; E83.52 Hypercalcemia; Z78.0 Asymptomatic menopausal state; Z90.710 Acquired absence of both cervix and uterus
CPT/HCPCS: 71046; 76770; 77063; 77067; 77080

== ENCOUNTER → 2023-01-11 | Outpatient (CLI) | payer OTHER ==
--- NOTE | 2023-01-11 17:13 | USB ---
Reason for Exam: Additional evaluation requested from abnormal screening. Patient History: Menarche at age 13. First Full-Term at age 19. Hysterectomy at age 44. Postmenopausal. Risk Values: Maureen 5 year model risk: 1.2%. NCI Lifetime model risk: 4.4%. Technique: Method: Targeted. Prior Study Comparison: 12/28/2022 Bilateral MG 3D screening mammo w/cad, [facility]. Findings: The lateral section of the breast of the left breast, the axilla of the left breast and the retroareolar of the left breast were scanned. No solid or cystic masses are identified. No abnormality to correlate with the mammographic finding is evident.. Overall Assessment: Probably benign, BI-RAD 3 Management: Diagnostic Mammogram of the left breast in 6 months. A clinical breast exam by your physician is recommended on an annual basis and results should be correlated with mammographic findings. This exam should not preclude additional follow-up of suspicious palpable abnormalities. Results were given to the patient verbally at the time of exam. Electronically signed and approved by: Lee Fletcher D.O. Radiologis
== END | disposition home or self-care (01) ==
LOC: RADMAMWWP 14:23
PROVIDERS: ATTEND Internal Medicine
DX: R92.8 Other abnormal and inconclusive findings on diagnostic imaging of breast (principal); Z78.0 Asymptomatic menopausal state
CPT/HCPCS: 77061; 77065

== ENCOUNTER → 2023-04-01 | Outpatient (CLI) | payer OTHER ==
[2023-04-01 16:06] LABS: Ionized Calcium 5.2 mg/dL (4.5-5.3)
[2023-04-01 20:42] LABS: Blood Urea Nitrogen 20.7 mg/dL (9.0-27.0); Calcium 9.6 mg/dL (8.7-10.3); Carbon Dioxide 26.9 mmol/L (21.6-31.8); Chloride 104 mmol/L (96-109); Glucose 136 mg/dL (70-110); Potassium 4.6 mmol/L (3.5-5.5); Sodium 142 mmol/L (135-145)
== END | disposition home or self-care (01) ==
LOC: LABWHC1 15:01
PROVIDERS: ATTEND Internal Medicine
DX: E83.52 Hypercalcemia (principal)
CPT/HCPCS: 36415; 80048; 82330; 83970